=== PATIENT | female | born 1970 | race Asian ===

== ENCOUNTER 2017-10-22 13:23 | Emergency (ER) | payer BC, OTHER ==
[2017-10-22] MEDS ORDERED: Sodium Chloride 0.9% 1,000 ML IV ONE (13:31)
[2017-10-22] MEDS ORDERED: Ondansetron 4 MG/2 ML SDV IVPUSH ONE (13:31)
[2017-10-22] MEDS ORDERED: Ketorolac 30 MG/ML SDV IVPUSH ONE (13:31)
--- NOTE | 2017-10-22 13:31 | EDM.PDOC ---
ED HPI GENERAL MEDICAL PROBLEM - General Chief Complaint: Gastrointestinal Problem Stated Complaint: ABDOMINAL PAIN Time Seen by Provider: 10/22/17 13:31 Source of Information: Reports: Patient - History of Present Illness INITIAL COMMENTS - FREE TEXT/NARRATIVE: HISTORY AND PHYSICAL: History of present illness: [Patient presents with multiple viral symptoms such as headache dizziness myalgias intermittent abdominal pain she has had some diarrhea yesterday several episodes no blood or mucus in the stool this is resolved today however she continues to have headache and mild dizziness sensation. Patient is in no distress and does not really appear ill whatsoever however she does have some sinus tenderness on exam and a left otitis No current fever nausea vomiting chills sweats ] Review of systems: As per history of present illness and below otherwise all systems reviewed and negative. Past medical history: As per history of present illness and as reviewed below otherwise noncontributory. Surgical history: As per history of present illness and as reviewed below otherwise noncontributory. Social history: No reported history of drug or alcohol abuse. Family history: As per history of present illness and as reviewed below otherwise noncontributory. Physical exam: HEENT: Atraumatic, normocephalic, pupils reactive, negative for conjunctival pallor or scleral icterus, mucous membranes moist, throat clear, neck supple, nontender, trachea midline. Left tympanic membrane red bulging landmarks obscured rate is injected no effusion no mastoid tenderness sinuses are tender on the frontal sinuses right greater than left Lungs: Clear to auscultation, breath sounds equal bilaterally, chest nontender. Heart: S1S2, regular, negative for clicks, rubs, or JVD. Abdomen: Soft, nondistended, nontender. Negative for masses or hepatosplenomegaly. Negative for costovertebral tenderness. Pelvis: Stable nontender. Genitourinary: Deferred. Rectal: Deferred. Extremities: Atraumatic, negative for cords or calf pain. Neurovascular unremarkable. Neuro: Awake, alert, oriented. Cranial nerves II through XII unremarkable. Cerebellum unremarkable. Motor and sensory unremarkable throughout. Exam nonfocal. Diagnostics: [CBC CMP UA hCG troponin lipase ]EKG Therapeutics: [1 L normal saline bolus Zofran 8 mg IV Toradol 30 mg IV ] Amoxicillin 875 by mouth twice a day #20 no refill Phenergan 25 mg by mouth every 6 when necessary nausea vomiting dizziness #30 no refill Impression: Gastroenteritis Sinusitis OM-L ]Headache/dizzy secondary to above Definitive disposition and diagnosis as appropriate pending reevaluation and review of above. Abdominal Cramp Pain Score (Numeric/FACES): 8 - Related Data Allergies Allergy/AdvReac Type Severity Reaction Status Date / Time No Known Allergies Allergy Verified 10/22/17 13:51 Home Meds: Home Meds . [No Known Home Meds] 10/22/17 [History] ED ROS GENERAL - Review of Systems Review Of Systems: ROS reveals no pertinent complaints other than HPI. ED EXAM, GENERAL - Physical Exam Exam: See Below Course - Vital Signs Last Recorded V/S: Last Vital Signs Temp 98.0 F 10/22/17 13:51 Pulse 78 10/22/17 13:51 Resp 20 10/22/17 13:51 BP 119/79 10/22/17 13:51 Pulse Ox 98 10/22/17 13:51 Orthostatic Blood Pressure [ 143/88 Standing] Orthostatic Blood Pressure [ 136/81 Sitting] Orthostatic Blood Pressure [ 125/80 Supine] - Orders/Labs/Meds Orders: Active Orders 24 hr Category Date Time Status EKG Documentation Completion [RC] STAT Care 10/22/17 14:21 Active Orthostatic Vital Signs [RC] ASDIRECTED Care 10/22/17 14:21 Active Sodium Chloride 0.9% [Normal Saline] 500 ml Med 10/22/17 14:00 Active IV .BOLUS Sodium Chloride 0.9% [Normal Saline] 500 ml Med 10/22/17 15:15 Active IV .BOLUS Medication Orders Sodium Chloride (Normal Saline) 500 mls @ 999 mls/hr IV .BOLUS TWAN Last Admin: 10/22/17 14:21 Dose: 999 mls/hr Sodium Chloride (Normal Saline) 500 mls @ 999 mls/hr IV .BOLUS TWAN Last Admin: 10/22/17 15:06 Dose: 999 mls/hr Labs: Laboratory Tests 10/22/17 10/22/17 10/22/17 Range/Units 12:40 12:40 13:30 WBC 5.92 (4.0-11.0) K/uL RBC 4.50 (4.30-5.90) M/uL Hgb 13.9 (12.0-16.0) g/dL Hct 39.4 (36.0-46.0) % MCV 87.6 (80.0-98.0) fL MCH 30.9 (27.0-32.0) pg MCHC 35.3 (31.0-37.0) g/dL RDW Std Deviation 38.9 (28.0-62.0) fl RDW Coeff of Caro 12 (11.0-15.0) % Plt Count 232 (150-400) K/uL MPV 9.00 (7.40-12.00) fL Neut % (Auto) 57.1 (48.0-80.0) % Lymph % (Auto) 31.9 (16.0-40.0) % Weld % (Auto) 10.0 (0.0-15.0) % Eos % (Auto) 0.7 (0.0-7.0) % Baso % (Auto) 0.3 (0.0-1.5) % Neut # (Auto) 3.4 (1.4-5.7) K/uL Lymph # (Auto) 1.9 (0.6-2.4) K/uL Weld # (Auto) 0.6 (0.0-0.8) K/uL Eos # (Auto) 0.0 (0.0-0.7) K/uL Baso # (Auto) 0.0 (0.0-0.1) K/uL Nucleated RBC % 0.0 /100WBC Nucleated RBCs # 0 K/uL Sodium 139 (136-145) mmol/L Potassium 3.7 (3.5-5.1) mmol/L Chloride 105 (98-107) mmol/L Carbon Dioxide 25.8 (21.0-32.0) mmol/L BUN 13 (7.0-18.0) mg/dL Creatinine 0.7 (0.6-1.0) mg/dL Est Cr Clr Drug Dosing 91.32 mL/min Estimated GFR (MDRD) > 60.0 ml/min Glucose 108 H (74-106) mg/dL Calcium 8.6 (8.5-10.1) mg/dL Total Bilirubin 0.3 (0.2-1.0) mg/dL AST 15 (15-37) U/L ALT 19 (14-63) U/L Alkaline Phosphatase 48 (46-116) U/L Troponin I < 0.050 (0.000-0.056) ng/mL Total Protein 7.1 (6.4-8.2) g/dL Albumin 3.6 (3.4-5.0) g/dL Globulin 3.5 (2.0-3.5) g/dL Albumin/Globulin Ratio 1.0 L (1.3-2.8) Amylase 36 (25-115) U/L Lipase 91 (73-393) U/L Urine Color YELLOW Urine Appearance CLEAR Urine pH 6.0 (5.0-8.0) Ur Specific Chester 1.025 (1.001-1.035) Urine Protein NEGATIVE (NEGATIVE) mg/dL Urine Glucose (UA) NEGATIVE (NEGATIVE) mg/dL Urine Ketones NEGATIVE (NEGATIVE) mg/dL Urine Occult Blood SMALL H (NEGATIVE) Urine Nitrite NEGATIVE (NEGATIVE) Urine Bilirubin NEGATIVE (NEGATIVE) Urine Urobilinogen 0.2 (<2.0) EU/dL Ur Leukocyte Esterase NEGATIVE (NEGATIVE) Urine RBC 1-3 (0-2/HPF) Urine WBC 0-1 (0-5/HPF) Ur Epithelial Cells FEW (NONE-FEW) Urine Bacteria RARE (NEGATIVE) Urine Mucus LIGHT (NONE-MOD) Urine HCG, Qual (NEGATIVE) 10/22/17 Range/Units 14:51 WBC (4.0-11.0) K/uL RBC (4.30-5.90) M/uL Hgb (12.0-16.0) g/dL Hct (36.0-46.0) % MCV (80.0-98.0) fL MCH (27.0-32.0) pg MCHC (31.0-37.0) g/dL RDW Std Deviation (28.0-62.0) fl RDW Coeff of Caro (11.0-15.0) % Plt Count (150-400) K/uL MPV (7.40-12.00) fL Neut % (Auto) (48.0-80.0) % Lymph % (Auto) (16.0-40.0) % Weld % (Auto) (0.0-15.0) % Eos % (Auto) (0.0-7.0) % Baso % (Auto) (0.0-1.5) % Neut # (Auto) (1.4-5.7) K/uL Lymph # (Auto) (0.6-2.4) K/uL Weld # (Auto) (0.0-0.8) K/uL Eos # (Auto) (0.0-0.7) K/uL Baso # (Auto) (0.0-0.1) K/uL Nucleated RBC % /100WBC Nucleated RBCs # K/uL Sodium (136-145) mmol/L Potassium (3.5-5.1) mmol/L Chloride (98-107) mmol/L Carbon Dioxide (21.0-32.0) mmol/L BUN (7.0-18.0) mg/dL Creatinine (0.6-1.0) mg/dL Est Cr Clr Drug Dosing mL/min Estimated GFR (MDRD) ml/min Glucose (74-106) mg/dL Calcium (8.5-10.1) mg/dL Total Bilirubin (0.2-1.0) mg/dL AST (15-37) U/L ALT (14-63) U/L Alkaline Phosphatase (46-116) U/L Troponin I (0.000-0.056) ng/mL Total Protein (6.4-8.2) g/dL Albumin (3.4-5.0) g/dL Globulin (2.0-3.5) g/dL Albumin/Globulin Ratio (1.3-2.8) Amylase (25-115) U/L Lipase (73-393) U/L Urine Color Urine Appearance Urine pH (5.0-8.0) Ur Specific Chester (1.001-1.035) Urine Protein (NEGATIVE) mg/dL Urine Glucose (UA) (NEGATIVE) mg/dL Urine Ketones (NEGATIVE) mg/dL Urine Occult Blood (NEGATIVE) Urine Nitrite (NEGATIVE) Urine Bilirubin (NEGATIVE) Urine Urobilinogen (<2.0) EU/dL Ur Leukocyte Esterase (NEGATIVE) Urine RBC (0-2/HPF) Urine WBC (0-5/HPF) Ur Epithelial Cells (NONE-FEW) Urine Bacteria (NEGATIVE) Urine Mucus (NONE-MOD) Urine HCG, Qual NEGATIVE (NEGATIVE) Meds: Medications Generic Name Dose Route Start Last Admin Trade Name Freq PRN Reason Stop Dose Admin Sodium Chloride 500 mls @ 999 mls/hr 10/22/17 14:00 10/22/17 14:21 Normal Saline IV 999 mls/hr .BOLUS TWAN Administration Sodium Chloride 500 mls @ 999 mls/hr 10/22/17 15:15 10/22/17 15:06 Normal Saline IV 999 mls/hr .BOLUS TWAN Administration Discontinued Medications Generic Name Dose Route Start Last Admin Trade Name Rachel PRN Reason Stop Dose Admin Sodium Chloride 1,000 mls @ 999 mls/hr 10/22/17 13:31 10/22/17 14:24 Normal Saline IV 10/22/17 14:31 Not Given STAT ONE Ketorolac Tromethamine 30 mg 10/22/17 13:31 10/22/17 14:21 Toradol IVPUSH 10/22/17 13:32 30 mg ONETIME ONE Administration Ondansetron HCl 8 mg 10/22/17 13:31 10/22/17 14:20 Zofran IVPUSH 10/22/17 13:32 8 mg ONETIME ONE Administration Departure - Departure Time of Disposition: 15:14 Disposition: Home, Self-Care 01 Condition: Good Clinical Impression: Gastroenteritis, Sinusitis, Otitis media - Discharge Information Referrals: Jude Yoder MD [Primary Care Provider] - Forms: ED Department Discharge Additional Instructions: Rest fluids nutrition Recommend clear liquid diet for the rest of the day until tomorrow Hydration techniques as discussed Return if symptoms persist or worsen Medications as prescribed Follow-up with primary care in 2 weeks [facility] [address] [place], [place] [id number] The following information is given to patients seen in the emergency department who are being discharged to home. This information is to outline your options for follow-up care. We provide all patients seen in our emergency department with a follow-up referral. The need for follow-up, as well as the timing and circumstances, are variable depending upon the specifics of your emergency department visit. If you don't have a primary care physician on staff, we will provide you with a referral. We always advise you to contact your personal physician following an emergency department visit to inform them of the circumstance of the visit and for follow-up with them and/or the need for any referrals to a consulting specialist. The emergency department will also refer you to a specialist when appropriate. This referral assures that you have the opportunity for follow-up care with a specialist. All of these measure are taken in an effort to provide you with optimal care, which includes your follow-up. Under all circumstances we always encourage you to contact your private physician who remains a resource for coordinating your care. When calling for follow-up care, please make the office aware that this follow-up is from your recent emergency room visit. If for any reason you are refused follow-up, please contact the [facility] emergency department at and asked to speak to the emergency department charge nurse. - My Orders Last 24 Hours: My Active Orders 10/22/17 14:00 Sodium Chloride 0.9% [Normal Saline] 500 ml IV .BOLUS 10/22/17 14:21 EKG Documentation Completion [RC] STAT Orthostatic Vital Signs [RC] ASDIRECTED 10/22/17 15:15 Sodium Chloride 0.9% [Normal Saline] 500 ml IV .BOLUS - Assessment/Plan Last 24 Hours: My Active Orders 10/22/17 14:00 Sodium Chloride 0.9% [Normal Saline] 500 ml IV .BOLUS 10/22/17 14:21 EKG Documentation Completion [RC] STAT Orthostatic Vital Signs [RC] ASDIRECTED 10/22/17 15:15 Sodium Chloride 0.9% [Normal Saline] 500 ml IV .BOLUS
[2017-10-22] MEDS ORDERED: Sodium Chloride 0.9% 500 ML IV SCH ×2 (14:00→15:15)
[2017-10-22 14:17] LABS: CHLORIDE,CL 105 mmol/L (98-107); SODIUM,NA 139 mmol/L (136-145)
== END 2017-10-22 15:39 | disposition home or self-care (01) ==
LOC: MW.ED 13:23
DX: K52.9 Noninfective gastroenteritis and colitis, unspecified (principal); J32.9 Chronic sinusitis, unspecified; H66.92 Otitis media, unspecified, left ear
CPT/HCPCS: 36415; 80053; 81001; 81025; 82150; 83690; 84484; 85025; 87804; 93005; 96361; 96374; 96375; 99284; J1885; J2405; J7040; 99283

== ENCOUNTER 2023-03-12 09:59 | Emergency (ER) | payer BC ==
[2023-03-12] MEDS ORDERED: Sodium Chloride 0.9% 2.5 ML Syringe FLUSH PRN (10:10)
[2023-03-12] MEDS ORDERED: Sodium Chloride 0.9% 10 ML Syringe FLUSH PRN (10:10)
[2023-03-12] MEDS ORDERED: Lidocaine 4% 1 each Patch TOP ONE (10:10)
[2023-03-12] MEDS ORDERED: Cyclobenzaprine 10 MG Tab PO ONE (10:10)
[2023-03-12 10:32] LABS: BASOPHILS PERCENT AUTO 0.3 % (0.0-1.5); EOSINOPHILS ABSOLUTE AUTO 0.2 K/uL (0.0-0.7); EOSINOPHILS PERCENT AUTO 2.3 % (0.0-7.0); HEMATOCRIT 39.6 % (36.0-46.0); HEMOGLOBIN 13.6 g/dL (12.0-16.0); LYMPHOCYTES ABSOLUTE AUTO 2.3 K/uL (0.6-2.4); LYMPHOCYTES PERCENT AUTO 35.9 % (16.0-40.0); MEAN CORPUSCULAR HEMOGLOBIN 29.8 pg (27.0-32.0); MEAN CORPUSCULAR HGB CONC 34.3 g/dL (31.0-37.0); MEAN CORPUSCULAR VOLUME 86.8 fL (80.0-98.0); MONOCYTES ABSOLUTE AUTO 0.5 K/uL (0.0-0.8); NEUTROPHILS ABSOLUTE AUTO 3.5 K/uL (1.4-5.7); NEUTROPHILS PERCENT AUTO 54.5 % (48.0-80.0); NRBC ABSOLUTE 0 K/uL; PLATELET COUNT,PLT 268 K/uL (150-400); RED BLOOD CELL COUNT 4.56 M/uL (4.30-5.90); WHITE BLOOD CELL COUNT,WBC 6.47 K/uL (4.0-11.0)
[2023-03-12 11:00] LABS: A/G RATIO 0.9 (0.9-1.6); ALANINE AMINOTRANSFERASE,ALT 22 IU/L (14-63); ALBUMIN 3.7 g/dL (3.4-5.0); ALKALINE PHOSPHATASE 54 U/L (46-116); ASPARTATE AMNIOTRANSFERASE,AST 16 IU/L (15-37); BILIRUBIN TOTAL 0.6 mg/dL (0.2-1.0); BLOOD UREA NITROGEN,BUN 16 mg/dL (7.0-18.0); CALCIUM 9.2 mg/dL (8.5-10.1); CARBON DIOXIDE,CO2 29.8 mmol/L (21.0-32.0); CHLORIDE,CL 101 mmol/L (98-107); CREATININE 0.9 mg/dL (0.6-1.0); EST CRCL DRUG DOSING (CG) 70.01 mL/min; GLUCOSE RANDOM 108 mg/dL (74-106); LIPASE 86 U/L (73-393); POTASSIUM,K 3.3 mmol/L (3.5-5.1); PROTEIN TOTAL,TP 7.6 g/dL (6.4-8.2); SODIUM,NA 139 mmol/L (136-145)
[2023-03-12 11:03] LABS: ESTIMATED GFR 78 mL/min (>60)
== END 2023-03-12 11:59 | disposition home or self-care (01) ==
LOC: MW.ED 09:59
DX: R07.89 Other chest pain (principal); I10 Essential (primary) hypertension; Z79.899 Other long term (current) drug therapy
CPT/HCPCS: 36415; 71046; 80053; 83690; 84484; 85025; 85379; 99285; A9270; J3490; 93005; 93010; 99283

== ENCOUNTER 2024-06-30 18:36 | Emergency (ER) | payer BC | END 2024-06-30 20:29 | LOC: MW.ED 18:36 | DX: Z02.89 Encounter for other administrative examinations (principal); I10 Essential (primary) hypertension; Z79.899 Other long term (current) drug therapy | CPT/HCPCS: 99283 ==